=== PATIENT | male | born 1980 | race Caucasian/White ===

== ENCOUNTER 2021-03-01 17:45 | Emergency (ER) | payer OTHER ==
[2021-03-01 19:12] LABS: BASOPHIL 0.9 % (0-2); EOSINOPHIL 2.1 % (0-5); HCT 42.5 % (42.0-52.0); HGB 14.2 g/dl (13.2-18.0); MCH 29.3 pg (25.0-31.0); MCHC 33.4 g/dL (32.0-36.0); MCV 87.8 fL (78.0-100.0); MONOCYTE 5.5 % (0-12); MPV 9.4 fL (6.0-9.5); NRBC 0; PLT 255 K/uL (150-400); RBC 4.84 M/uL (4.70-6.00); RDW 12.7 % (11.5-14.0); WBC 5.8 K/uL (4.0-10.5)
[2021-03-01 20:01] LABS: ALBUMIN 3.8 g/dL (3.4-5.0); BUN/CREAT RATIO (CALC) 14.4 RATIO; CREATININE 1.04 mg/dL (0.67-1.17); GLOBULIN (CALCULATION) 3.2 g/dL; POTASSIUM 3.6 mmol/L (3.5-5.1)
== END 2021-03-01 19:56 | disposition left against medical advice (07) ==
LOC: FER 17:45
PROVIDERS: Internal Medicine
DX: K92.1 Melena (principal); Z53.8 Procedure and treatment not carried out for other reasons
CPT/HCPCS: 36415; 80053; 85025; 99281